=== PATIENT | female | born 1980 | race Caucasian/White ===

== ENCOUNTER → 2017-10-09 | Outpatient (CLI) | payer BC | END | disposition home or self-care (01) | LOC: CFH 08:16 | PROVIDERS: ATTEND Internal Medicine Critical Care Medicine | DX: J98.11 Atelectasis (principal); J43.9 Emphysema, unspecified; R91.8 Other nonspecific abnormal finding of lung field | CPT/HCPCS: 71250 ==

== ENCOUNTER 2018-04-25 11:35 | Inpatient (IN) | payer BC ==
[~2018-04-25] VITALS: Ht 152.4 cm; Wt 83.5 kg
[2018-04-25 12:23] LABS: ALBUMIN 3.6 g/dL (3.4-5.0); ANION GAP 9 mmol/L (5-15); CALCIUM 8.4 mg/dL (8.5-10.1); CHLORIDE 103 mmol/L (98-107); CREATININE 0.73 mg/dL (0.55-1.02)
[2018-04-25 12:35] LABS: MEAN CORPUSCULAR VOLUME 127.1 fL (80-100); MEAN PLATELET VOLUME 7.4 fL (7.4-10.4); PLATELET COUNT 340 x10^3/uL (130-400); RED BLOOD COUNT 1.36 x10^6/uL (3.82-5.3); RED CELL DISTRIBUTION WIDTH 18.4 % (9.6-15.2)
--- NOTE | 2018-04-25 12:45 | NUR ---
CAFE SITE ATTENDANT: PT AMBULATORY TO ED ROOM 40 FROM [facility] AT THIS TIME IN NAD
--- NOTE | 2018-04-25 13:06 | NUR ---
PT TO HAVE REDRAW OF CBC PER MD PARDO AT THIS TIME TO CONFIRM LOW LEVEL. PT RESTING IN ROOM. TYPE AND SCREEN COLLECTED.
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
[2018-04-25 13:10] LABS: BASOPHILS # (AUTO) 0.02 x10^3/uL (0-0.1); BASOPHILS % (AUTO) 0 % (0-1); EOSINOPHILS # (AUTO) 0.12 x10^3/uL (0-0.4); EOSINOPHILS % (AUTO) 1 % (1-7); LYMPHOCYTES # (AUTO) 1.38 x10^3/uL (1-3.4); LYMPHOCYTES % (AUTO) 16 % (22-44); MD MORPH REVIEW ONLY; MONOCYTES # (AUTO) 0.48 x10^3/uL (0.2-0.8); MONOCYTES % (AUTO) 6 % (2-9); NEUTROPHILS # (AUTO) 6.45 x10^3/uL (1.8-6.8); NEUTROPHILS % (AUTO) 76 % (42-75)
[2018-04-25 13:14] LABS: ANISOCYTOSIS 2+; STOMATOCYTES 1+
[2018-04-25 13:15] LABS: <PLATELET ESTIMATE> ADEQUATE; <PLT MORPHOLOGY> NORMAL PLT MORPH; POLYCHROMASIA 2+
[2018-04-25 13:34] LABS: BASOPHILS # (AUTO) 0.01 x10^3/uL (0-0.1); BASOPHILS % (AUTO) 0 % (0-1); EOSINOPHILS # (AUTO) 0.11 x10^3/uL (0-0.4); EOSINOPHILS % (AUTO) 2 % (1-7); LYMPHOCYTES # (AUTO) 1.08 x10^3/uL (1-3.4); LYMPHOCYTES % (AUTO) 17 % (22-44); MD NO; MEAN CORPUSCULAR HEMOGLOBIN 43.1 pg (27.0-34.8); MEAN CORPUSCULAR HGB CONC 33.7 g/dL (32.4-35.8); MEAN CORPUSCULAR VOLUME 127.8 fL (80-100); MEAN PLATELET VOLUME 7.2 fL (7.4-10.4); MONOCYTES % (AUTO) 6 % (2-9); NEUTROPHILS # (AUTO) 4.84 x10^3/uL (1.8-6.8); NEUTROPHILS % (AUTO) 75 % (42-75); PLATELET COUNT 272 x10^3/uL (130-400); RED BLOOD COUNT 1.17 x10^6/uL (3.82-5.3); RED CELL DISTRIBUTION WIDTH 18.1 % (9.6-15.2)
[2018-04-25] MEDS ORDERED: POTASSIUM CHLORIDE 20 MEQ TAB.ER.PRT PO ONE (14:30)
--- NOTE | 2018-04-25 14:45 | NUR ---
PT TO RECEIVE BLOOD IN HOSPITAL, PT HAS RARE BLOOD TYPE AND WILL TAKE 3 HOURS PER SREEDHAR IN BLOOD BANK TO MAKE HER BLOOD. MD AWARE AND WILL ADMIT PT. PT DOES NOT REQUIRE EMERGENT BLOOD.
[2018-04-25] MEDS ORDERED: OXYcodone/APAP 5/325MG TABLET ONE (15:27)
[2018-04-25] MEDS ORDERED: OXYcodone/APAP 5/325MG TABLET PO ONE (15:30)
--- NOTE | 2018-04-25 15:31 | NUR ---
PT MEDICATED FOR PAIN AT THIS TIME.
[2018-04-25] MEDS ORDERED: POTASSIUM CHLORIDE 20 MEQ TAB.ER.PRT ONE (16:03)
[2018-04-25] MEDS ORDERED: ENALAPRILAT 1.25 MG/ML, 2ML IVPush PRN (16:30)
[2018-04-25] MEDS ORDERED: hydrALAzine 20 MG/ML, 1ML IVPush PRN (16:30)
[2018-04-25] MEDS ORDERED: ONDANSETRON ODT 4 MG PO PRN (16:30)
[2018-04-25] MEDS ORDERED: ONDANSETRON 2MG/ML, 2ML IVPush PRN (16:30)
[2018-04-25] MEDS ORDERED: BISACODYL 10 MG SUPP PR PRN (16:30)
[2018-04-25] MEDS ORDERED: DOCUSATE 100 MG CAPSULE PO PRN (16:30)
--- NOTE | 2018-04-25 16:57 | NUR ---
TASK RN: REPORT CALLED TO DEWAYNE FRANCIS ON FLOOR. PT PREPARED FOR TRANSPORT. Addendum: 04/25/18 at 1658 by XAVIER RN ON FLOOR KNOWS THAT BLOOD HAS NOT YET BEEN STARTED DUE TO DIFFICULTY OBTAINING SPECIFIC TYPE. RN AGREES TO CONTACT HOSPITALIST FOR FLOOR TRANSFUSION ORDERS.
[2018-04-25 17:22] LABS: INTERNATIONAL NORMALIZED RATIO 1.03 (0.93-1.1); PROTHROMBIN TIME 10.9 Seconds (9.6-11.5)
[2018-04-25 17:26] LABS: % IRON SATURATION 62 % (20-55); ALANINE AMINOTRANSFERASE 18 U/L (12-78); ALBUMIN 3.4 g/dL (3.4-5.0); BILIRUBIN, DIRECT 0.5 mg/dL (0.1-0.2); IRON LEVEL 146 mcg/dL (50-170); TOTAL IRON BINDING CAPACITY 235 mcg/dL (250-450)
[2018-04-25] MEDS ORDERED: OMNIPAQUE 350 MG/ML, 100ML BOTTLE ONE (17:30)
[2018-04-25 17:35] LABS: MICROSCOPIC NOT IND
[2018-04-25] MEDS: SODIUM CHLORIDE 0.9% 1,000 ML IV SCH (17:37)
[2018-04-25] MEDS: NICOTINE 7 MG/24 HR PATCH.TD24 TD SCH (17:37)
[2018-04-25 17:41] LABS: CULTURE INDICATED? NO
[2018-04-25 17:52] LABS: ALKALINE PHOSPHATASE 122 U/L (45-117); BILIRUBIN,INDIRECT 2.6 mg/dL (0.0-2.0); BILIRUBIN,TOTAL 3.1 mg/dL (0.2-1.0); TOTAL PROTEIN 6.7 g/dL (6.4-8.2)
[2018-04-25 17:56] LABS: AMPHETAMINE SCREEN, URINE Positive (Negative); BARBITURATE SCREEN, URINE Negative (Negative); BENZODIAZEPINE SCREEN, URINE Negative (Negative); CANNABINOID SCREEN, URINE Negative (Negative); COCAINE SCREEN, URINE Negative (Negative); METHADONE SCREEN, URINE Negative (Negative); OPIATE SCREEN, URINE Negative (Negative)
[2018-04-25 19:15] VITALS: BP 97/59
[2018-04-25] MEDS: ACETAMINOPHEN 325 MG TABLET PO PRN (20:00)
[2018-04-25 21:13] LABS: RED BLOOD COUNT 1.18 x10^6/uL (3.82-5.3)
[2018-04-25] MEDS ORDERED: GABA300S PO (21:40)
[2018-04-25] MEDS ORDERED: AMPH30TA2 PO (21:40)
[2018-04-25] MEDS ORDERED: VENL150C PO (21:41)
[2018-04-25 21:53] LABS: ABSOLUTE RETICS # 0.298 x10^6/uL (0.5-2.5); RETICULOCYTE COUNT % 25.29 % (0.5-1.5)
[2018-04-25 21:56] VITALS: BP 100/63
[2018-04-25] MEDS ORDERED: FLUT1BLS INH (21:57)
[2018-04-25] MEDS: GABAPENTIN 300 MG CAPSULE PO SCH (23:45)
[2018-04-26] VITALS (8 sets, daily range): BP systolic 95–117; BP diastolic 59–70
[2018-04-26] MEDS ORDERED: ACETAMINOPHEN 325 MG TABLET PO ONE (01:00)
[2018-04-26] MEDS: DIPHENHYDRAMINE 50 MG CAPSULE PO PRN (01:02)
[2018-04-26 07:38] LABS: ALANINE AMINOTRANSFERASE 22 U/L (12-78); CREATININE 0.51 mg/dL (0.55-1.02)
[2018-04-26 07:49] LABS: ALKALINE PHOSPHATASE 130 U/L (45-117); BILIRUBIN,TOTAL 2.1 mg/dL (0.2-1.0); TOTAL PROTEIN 6.1 g/dL (6.4-8.2)
[2018-04-26 07:50] LABS: ANION GAP 8 mmol/L (5-15); CHLORIDE 110 mmol/L (98-107)
[2018-04-26 08:00] LABS: MEAN CORPUSCULAR HGB CONC 32.5 g/dL (32.4-35.8); MEAN CORPUSCULAR VOLUME 110.8 fL (80-100); MEAN PLATELET VOLUME 7.3 fL (7.4-10.4); PLATELET COUNT 283 x10^3/uL (130-400); RED BLOOD COUNT 1.82 x10^6/uL (3.82-5.3); RED CELL DISTRIBUTION WIDTH 28.1 % (9.6-15.2)
[2018-04-26 08:10] LABS: MD YES
[2018-04-26 08:13] LABS: <PLATELET ESTIMATE> ADEQUATE; <PLT MORPHOLOGY> NORMAL PLT MORPH; ANISOCYTOSIS 2+; BAND#(MANUAL) 0.07 x10^3/uL; BANDS%(MANUAL) 1 % (0-7); LYMPH#(MANUAL) 0.37 x10^3/uL (1-3.4); LYMPHS% (MANUAL) 5 % (22-44); MONOS#(MANUAL) 0.22 x10^3/uL (0.3-2.7); MONOS% (MANUAL) 3 % (2-9); MYELOCYTES# (MANUAL) 0.07 x10^3/uL (0-0); MYELOCYTES% (MANUAL) 1 % (0-0); NRBC % (MANUAL) 1 % (0-1); POLYCHROMASIA 2+; SEG#(MANUAL) 6.66 x10^3/uL (1.8-6.8); SEGS% (MANUAL) 90 % (42-75)
[2018-04-26 08:14] LABS: TEAR DROPS 1+
[2018-04-26] MEDS: SODIUM CHLORIDE 0.9% 1,000 ML IV SCH (08:32)
[2018-04-26] MEDS: GABAPENTIN 300 MG CAPSULE PO SCH ×2 (08:33→16:19)
[2018-04-26] MEDS: PANTOPRAZOLE 40 MG IV IVPush SCH (08:33)
[2018-04-26] MEDS: SENNA/DOCUSATE TABLET PO SCH (08:34)
[2018-04-26] MEDS ORDERED: IMMUNE GLOB (GAMUNEX) 10GM/100ML IVPB ONE (11:30)
[2018-04-26 11:38] LABS: ABSOLUTE RETICS # 0.307 x10^6/uL (0.5-2.5); RED BLOOD COUNT 1.73 x10^6/uL (3.82-5.3); RETICULOCYTE COUNT % 17.81 % (0.5-1.5)
[2018-04-26] MEDS ORDERED: IMMUNE GLOBULIN IV ONE (12:00)
[2018-04-26 12:57] LABS: FOLATE LEVEL 4.8 ng/mL (3.1-17.5)
[2018-04-26] MEDS ORDERED: NALOXONE 1 MG/ML, 2ML ONE (13:03)
[2018-04-26] MEDS ORDERED: FENTANYL PF 100 MCG/2ML ONE (13:03)
[2018-04-26] MEDS ORDERED: LIDOCAINE-MPF 1%, 5ML ONE (13:04)
[2018-04-26] MEDS ORDERED: OMNIPAQUE 350 MG/ML, 75ML BOTTLE ONE (13:21)
[2018-04-26] MEDS: NICOTINE 7 MG/24 HR PATCH.TD24 TD SCH (16:19)
[2018-04-26] MEDS: ACETAMINOPHEN 325 MG TABLET PO PRN (16:48)
[2018-04-26 17:07] LABS: ESTIMATED AVERAGE GLUCOSE 54 mg/dL (0-126); HEMOGLOBIN A1C < 3.5 % (4.2-6.3)
[2018-04-27] MEDS: GABAPENTIN 300 MG CAPSULE PO SCH ×4 (00:43→20:39)
[2018-04-27] MEDS: SODIUM CHLORIDE 0.9% 1,000 ML IV SCH ×2 (00:47→07:44)
[2018-04-27 01:53] VITALS: BP 109/62
[2018-04-27] MEDS: GUAIFENESIN ER 600 MG TABLET PO SCH ×3 (01:59→20:39)
[2018-04-27] MEDS: PANTOPRAZOLE 40 MG IV IVPush SCH (07:44)
[2018-04-27 08:17] VITALS: BP 101/64
[2018-04-27 08:47] LABS: MEAN CORPUSCULAR HEMOGLOBIN 35.6 pg (27.0-34.8); MEAN CORPUSCULAR HGB CONC 32.4 g/dL (32.4-35.8); MEAN CORPUSCULAR VOLUME 109.8 fL (80-100); MEAN PLATELET VOLUME 7.2 fL (7.4-10.4); PLATELET COUNT 275 x10^3/uL (130-400); RED BLOOD COUNT 2.19 x10^6/uL (3.82-5.3); RED CELL DISTRIBUTION WIDTH 28.4 % (9.6-15.2)
[2018-04-27 08:48] LABS: MD YES
[2018-04-27] MEDS: SENNA/DOCUSATE TABLET PO SCH (08:58)
[2018-04-27] MEDS: CEFTRIAXONE PMX 1GM/50ML 50 ML IV SCH (08:58)
[2018-04-27 09:01] LABS: ANISOCYTOSIS 2+; LYMPH#(MANUAL) 2.38 x10^3/uL (1-3.4); LYMPHS% (MANUAL) 28 % (22-44); MONOS#(MANUAL) 0.51 x10^3/uL (0.3-2.7); MONOS% (MANUAL) 6 % (2-9); SEG#(MANUAL) 5.61 x10^3/uL (1.8-6.8); SEGS% (MANUAL) 66 % (42-75)
[2018-04-27 09:02] LABS: HYPOCHROMIA 1+; POLYCHROMASIA 2+; TEAR DROPS 1+
[2018-04-27 09:07] LABS: <PLATELET ESTIMATE> ADEQUATE; <PLT MORPHOLOGY> NORMAL PLT MORPH; SMUDGE CELLS 1+
[2018-04-27] MEDS: AZITHROMYCIN 500 MG in SODIUM CHLORIDE 0.9% 250 ML IV SCH (09:40)
[2018-04-27] MEDS ORDERED: ALBUTEROL SULFATE 2.5 MG/3 ML ONE (10:16)
[2018-04-27] MEDS ORDERED: ALBUTEROL SULFATE 2.5 MG/3 ML NPPB PRN (10:30)
[2018-04-27 11:52] LABS: ALBUMIN 2.6 g/dL (3.4-5.0); ANION GAP 4 mmol/L (5-15); CALCIUM 7.5 mg/dL (8.5-10.1); CHLORIDE 114 mmol/L (98-107)
[2018-04-27 11:56] LABS: ALANINE AMINOTRANSFERASE 27 U/L (12-78); ALKALINE PHOSPHATASE 120 U/L (45-117); BILIRUBIN, DIRECT 0.2 mg/dL (0.1-0.2); BILIRUBIN,INDIRECT 0.6 mg/dL (0.0-2.0); BILIRUBIN,TOTAL 0.8 mg/dL (0.2-1.0); TOTAL PROTEIN 6.6 g/dL (6.4-8.2)
[2018-04-27 13:02] LABS: ABSOLUTE RETICS # 0.286 x10^6/uL (0.5-2.5); RETICULOCYTE COUNT % 13.1 % (0.5-1.5)
[2018-04-27 13:04] LABS: RED BLOOD COUNT 2.05 x10^6/uL (3.82-5.3)
[2018-04-27 14:55] VITALS: BP 112/68
[2018-04-27] MEDS: GUAIFENESIN/DM 200-20MG, 10ML UDC PO PRN ×2 (15:52→20:46)
[2018-04-27] MEDS: NICOTINE 7 MG/24 HR PATCH.TD24 TD SCH (15:52)
[2018-04-27 19:19] VITALS: BP 112/70
[2018-04-27] MEDS: DIPHENHYDRAMINE 50 MG CAPSULE PO PRN (20:46)
[2018-04-27] MEDS: ACETAMINOPHEN 325 MG TABLET PO PRN (20:46)
[2018-04-28 01:19] VITALS: BP 129/80
[2018-04-28 05:04] LABS: ANION GAP 6 mmol/L (5-15); CALCIUM 8.2 mg/dL (8.5-10.1); CHLORIDE 113 mmol/L (98-107); CREATININE 0.68 mg/dL (0.55-1.02)
[2018-04-28 05:54] LABS: MD YES; MEAN CORPUSCULAR HEMOGLOBIN 35.8 pg (27.0-34.8); MEAN CORPUSCULAR HGB CONC 33.1 g/dL (32.4-35.8); MEAN CORPUSCULAR VOLUME 108.1 fL (80-100); PLATELET COUNT 292 x10^3/uL (130-400); RED BLOOD COUNT 2.43 x10^6/uL (3.82-5.3); RED CELL DISTRIBUTION WIDTH 27.9 % (9.6-15.2)
[2018-04-28 05:56] LABS: ANISOCYTOSIS 2+; HYPOCHROMIA 1+; LYMPH#(MANUAL) 1.65 x10^3/uL (1-3.4); LYMPHS% (MANUAL) 17 % (22-44); MONOS#(MANUAL) 0.87 x10^3/uL (0.3-2.7); MONOS% (MANUAL) 9 % (2-9); MYELOCYTES% (MANUAL) 1 % (0-0); NRBC % (MANUAL) 1 % (0-1); SEG#(MANUAL) 7.08 x10^3/uL (1.8-6.8); SEGS% (MANUAL) 73 % (42-75)
[2018-04-28 05:57] LABS: POLYCHROMASIA 2+
[2018-04-28 06:02] LABS: <PLATELET ESTIMATE> ADEQUATE; <PLT MORPHOLOGY> NORMAL PLT MORPH
[2018-04-28] MEDS: CEFTRIAXONE PMX 1GM/50ML 50 ML IV SCH (08:46)
[2018-04-28] MEDS: GUAIFENESIN ER 600 MG TABLET PO SCH (08:47)
[2018-04-28] MEDS: GABAPENTIN 300 MG CAPSULE PO SCH (08:47)
[2018-04-28] MEDS: PANTOPRAZOLE 40 MG IV IVPush SCH (08:47)
[2018-04-28] MEDS: SENNA/DOCUSATE TABLET PO SCH (08:47)
[2018-04-28] MEDS ORDERED: PRED20TA PO (09:10)
[2018-04-28] MEDS ORDERED: OMEP-110 PO (09:10)
[2018-04-28] MEDS ORDERED: CEFP200T PO (09:10)
[2018-04-28] MEDS ORDERED: AZIT500T5 PO (09:10)
[2018-04-28] MEDS ORDERED: GUAI600T31 PO (09:13)
[2018-04-28] MEDS ORDERED: DEXT15SY9 PO (09:13)
[2018-04-28 09:24] VITALS: BP 143/76
[2018-04-28] MEDS: AZITHROMYCIN 500 MG in SODIUM CHLORIDE 0.9% 250 ML IV SCH (10:32)
[2018-04-30 12:28] LABS: ANA SCREEN POSITIVE (Negative); ANTI-NUCLEAR ANTIBODY PATTERN SPECKLED
== END 2018-04-28 12:04 | disposition home or self-care (01) | DRG 802 ==
LOC: ED 14:26 → EDIP 15:20 → 3NE 17:29 → 3NW 21:52
PROVIDERS: ADMIT Internal Medicine; ATTEND Internal Medicine
PROC: 0QB33ZX Excision of Left Pelvic Bone, Percutaneous Approach, Diagnostic (ICD-10-PCS; principal; 2018-04-26)
PROC: 07DR3ZX Extraction of Iliac Bone Marrow, Percutaneous Approach, Diagnostic (ICD-10-PCS; 2018-04-26)
PROC: 30233S1 Transfusion of Nonautologous Globulin into Peripheral Vein, Percutaneous Approach (ICD-10-PCS; 2018-04-26)
PROC: 30233N1 Transfusion of Nonautologous Red Blood Cells into Peripheral Vein, Percutaneous Approach (ICD-10-PCS; 2018-04-26)
DX: D59.1 Other autoimmune hemolytic anemias (principal); J18.1 Lobar pneumonia, unspecified organism; F17.210 Nicotine dependence, cigarettes, uncomplicated; F90.9 Attention-deficit hyperactivity disorder, unspecified type; J32.9 Chronic sinusitis, unspecified; J45.909 Unspecified asthma, uncomplicated; F10.10 Alcohol abuse, uncomplicated; Y90.0 Blood alcohol level of less than 20 mg/100 ml; R16.1 Splenomegaly, not elsewhere classified; R31.9 Hematuria, unspecified; L98.8 Other specified disorders of the skin and subcutaneous tissue; F41.9 Anxiety disorder, unspecified; K57.30 Diverticulosis of large intestine without perforation or abscess without bleeding; R04.0 Epistaxis; Z82.5 Family history of asthma and other chronic lower respiratory diseases; Z90.711 Acquired absence of uterus with remaining cervical stump
CPT/HCPCS: 36415; 99285; J7613; 38222; 71046; 71260; 74177; 77012; 80048; 80053; 80076; 80307; 81003; 81403; 82040; 82247; 82248; 82607; 82746; 83010; 83036; 83540; 83550; 83615; 83735; 84100; 84443; 85014; 85018; 85025; 85045; 85060; 85097; 85610; 86038; 86039; 86256; 86850; 86870; 86880; 86900; 86902; 86905; 86906; 86922; 86923; 86970; 86978; 88237; 88264; 88280; 88305; 88311; 88313; 88342; 88360; 94640; G0378; J0456; J0696; J1561; J3010; Q9967; C9113; J2310; J7030; J7050; J7512; P9016

== ENCOUNTER 2018-05-19 23:56 | Emergency (ER) | payer BC ==
[~2018-05-19] VITALS: Ht 152.4 cm; Wt 79.0 kg
[~2018-05-19 23:56] MED LIST: AMPH30TA2 PO; AZIT500T5 PO; CEFP200T PO; DEXT15SY9 PO; FLUT1BLS INH; GABA300S PO; GUAI600T31 PO; OMEP-110 PO; PRED20TA PO; VENL150C PO
--- NOTE | 2018-05-20 00:32 | NUR ---
first contact with pt. pt c/o generalized weakness/left ear bleeding/blanca/sinus problem/gums pain/all over the body pain for a while. pt had blood transfusion here about 3 weeks ago d/t low h&h. neuro intact. pt's aox4. resps even and unlabored. bp/spo2 monitors in place. call light within reach. pt's mother at bedside. edmd at [facility] to assess.
[2018-05-20 00:56] LABS: BASOPHILS # (AUTO) 0.23 x10^3/uL (0-0.1); BASOPHILS % (AUTO) 1 % (0-1); EOSINOPHILS # (AUTO) 0.21 x10^3/uL (0-0.4); EOSINOPHILS % (AUTO) 1 % (1-7); LYMPHOCYTES # (AUTO) 2.08 x10^3/uL (1-3.4); LYMPHOCYTES % (AUTO) 13 % (22-44); MD NO; MEAN CORPUSCULAR HEMOGLOBIN 36.8 pg (27.0-34.8); MEAN CORPUSCULAR HGB CONC 34.6 g/dL (32.4-35.8); MEAN CORPUSCULAR VOLUME 106.2 fL (80-100); MEAN PLATELET VOLUME 6.9 fL (7.4-10.4); MONOCYTES # (AUTO) 0.87 x10^3/uL (0.2-0.8); MONOCYTES % (AUTO) 5 % (2-9); NEUTROPHILS # (AUTO) 12.67 x10^3/uL (1.8-6.8); NEUTROPHILS % (AUTO) 79 % (42-75); PLATELET COUNT 329 x10^3/uL (130-400); RED BLOOD COUNT 3.32 x10^6/uL (3.82-5.3); RED CELL DISTRIBUTION WIDTH 16.8 % (9.6-15.2)
[2018-05-20 01:02] LABS: ALANINE AMINOTRANSFERASE 34 U/L (12-78); ALBUMIN 3.8 g/dL (3.4-5.0); ANION GAP 2 mmol/L (5-15); CALCIUM 8.9 mg/dL (8.5-10.1); CHLORIDE 105 mmol/L (98-107); CREATININE 0.72 mg/dL (0.55-1.02)
[2018-05-20 01:04] LABS: ALKALINE PHOSPHATASE 93 U/L (45-117); TOTAL PROTEIN 6.5 g/dL (6.4-8.2)
--- NOTE | 2018-05-20 01:17 | NUR ---
pt amb to br and back to room with steady gait. ua sent.
[2018-05-20 01:25] LABS: MICROSCOPIC NOT IND
[2018-05-20 01:29] LABS: CULTURE INDICATED? NO
[2018-05-20 01:36] VITALS: BP 118/68
[2018-05-20 01:36] LABS: AMPHETAMINE SCREEN, URINE Positive (Negative); BARBITURATE SCREEN, URINE Negative (Negative); BENZODIAZEPINE SCREEN, URINE Negative (Negative); CANNABINOID SCREEN, URINE Negative (Negative); COCAINE SCREEN, URINE Negative (Negative); METHADONE SCREEN, URINE Negative (Negative); OPIATE SCREEN, URINE Negative (Negative)
--- NOTE | 2018-05-20 01:36 | NUR ---
pt requesting pain med at this time. edmd notified.
--- NOTE | 2018-05-20 01:41 | NUR ---
pt passed dysphagia swallow screen at this time.
--- NOTE | 2018-05-20 02:12 | NUR ---
pt given dc instructions. pt amb to dc with steady gait. pt's aox4. resps even and unlabored. no acute distress at dc.
== END 2018-05-20 02:13 | disposition home or self-care (01) ==
LOC: ED 05-20 00:55
DX: R42 Dizziness and giddiness (principal)
CPT/HCPCS: 36415; 80053; 80307; 81003; 85025; 99283

== ENCOUNTER → 2018-07-31 | Outpatient (CLI) | payer BC ==
[~2018-07-31] MED LIST changes: +OMNIPAQUE 350 MG/ML, 100ML BOTTLE ONE
== END | disposition home or self-care (01) ==
LOC: CFH 11:04
PROVIDERS: ATTEND Internal Medicine Hematology & Oncology
DX: K57.30 Diverticulosis of large intestine without perforation or abscess without bleeding (principal); K80.20 Calculus of gallbladder without cholecystitis without obstruction; J98.4 Other disorders of lung; R91.8 Other nonspecific abnormal finding of lung field; R16.1 Splenomegaly, not elsewhere classified; D59.1 Other autoimmune hemolytic anemias
CPT/HCPCS: 71260; 74177; Q9967

== ENCOUNTER → 2020-07-29 | Outpatient (CLI) | payer BC ==
[~2020-07-29] MED LIST changes: +AZIT500T10 PO; -AZIT500T5 PO; -OMNIPAQUE 350 MG/ML, 100ML BOTTLE ONE
== END | disposition home or self-care (01) ==
LOC: CFH 10:19
PROVIDERS: ATTEND Internal Medicine
DX: R91.8 Other nonspecific abnormal finding of lung field (principal)
CPT/HCPCS: 71250